=== PATIENT | male | born 1970 | race Two or more races ===

== ENCOUNTER 2025-05-25 18:36 | Emergency (ER) | payer MEDICAID, SELFPAY ==
[2025-05-25] VITALS (9 sets, daily range): BP systolic 124–185; BP diastolic 85–112; PULSE 64–105; RESP 12–23; TEMP 37.1–37.3; O2SAT 96–100; BMI 31.9
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
--- NOTE | 2025-05-25 18:50 | XR_ITS ---
EXAMINATION: AP chest single view TECHNIQUE: AP portable semiupright chest single view Date and time: May 25, 2025, 1904 hours INDICATIONS: Chest pain today. FINDINGS: Suspicious for early pneumonia left base Normal heart size Reduced inspiratory effort IMPRESSION: Suspicious for early pneumonia left base
--- NOTE | 2025-05-25 18:50 | EKG_ITS ---
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
--- NOTE | 2025-05-25 18:50 | XR_ITS ---
Examination: CT brain head without contrast. 2-D sagittal coronal reconstructions Date and time of exam: May 25, 2025, 1938 hours INDICATIONS: Patient fell today with injury to the head, head pain CTDI: vol (mGy): 52.6 DLP: (mGycm): 1062 Technique: Multiple CT axial sections of the brain have been obtained, 5 mm slice thickness. Contrast has not been administered. 2-D sagittal, coronal reconstructions have been obtained Low dose protocols were performed. One or more of the following dose reduction techniques were used; automated exposure control, adjustment of the mA and/or KV according to patient size, use of iterative reconstruction technique. Findings: Right subdural hematoma, likely subacute acute peripheral to the right frontal parietal convexity measuring up to 2.8 cm in dimension Transtentorial herniation with midline shift of 15 mm to the left Dilated temporal horns likely hydrocephalus Cranial vault intact Fourth ventricle midline Cerebellar tonsils are not herniated IMPRESSION: Right subdural hematoma, subacute versus acute, peripheral to the right frontoparietal convexity measuring up to 2.8 cm in dimension, shift of the frontal horns to the left 15 mm with marked impingement upon the right lateral ventricular system
--- NOTE | 2025-05-25 18:53 | PC.NURSE ---
NO STROKE ALERT PER DR. MONTAÑO
[2025-05-25] MEDS: NALOXONE INJ 1 MG/ML SYRINGE 2 ML 2 MG IV (19:09)
[2025-05-25 19:20] LABS: Basophils # (Auto) 0.0 Thou/mm3 (0.0-0.2); Basophils % (Auto) 0 % (0-2.5); Eosinophils # (Auto) 0.0 Thou/mm3 (0.0-0.5); Eosinophils % (Auto) 0 % (0-10); Hematocrit 44.4 % (41.0-53.0); Hemoglobin 15.0 g/dL (13.5-16.0); Immature Granulocytes Auto 0.03 Thou/mm3 (0.00-0.00); Lymphocytes # (Auto) 0.9 Thou/mm3 (1.0-4.8); Lymphocytes % (Auto) 8 % (10-50); Mean Corpuscular HGB Conc 33.8 g/dl (31.0-37.0); Mean Corpuscular Hemoglobin 31.1 pg (25.0-35.0); Mean Corpuscular Volume 92 fL (80-100); Monocytes # (Auto) 0.6 Thou/mm3 (0.0-0.8); Monocytes % (Auto) 6 % (0-12); Neutrophils # (Auto) 9.2 Thou/mm3 (1.8-7.7); Neutrophils % (Auto) 85 % (37-80); Nucleated Red Blood Cell # 0.00 Thou/mm3 (0.00-0.00); Nucleated Red Blood Cell % 0 /100 WBC (0); Platelet Count 212 Thou/mm3 (140-440); RDW Standard Deviation 43.8 fL (35.1-43.9); Red Blood Count 4.82 Miln/mm3 (4.50-5.90); White Blood Count 10.8 Thou/mm3 (3.8-10.6)
[2025-05-25 19:38] LABS: Alanine Aminotransferase 14 U/L (10-49); Albumin, Serum 4.5 gm/dL (3.5-5.0); Albumin/Globulin Ratio 1.5 (1.2-2.2); Alcohol, Blood Medical < 10.0 mg/dL (0-10.0); Alkaline Phosphatase 103 U/L (46-116); Anion Gap 10 (7-16); Aspartate Amino Transferase 17 U/L (0-34); BUN/Creatinine Ratio 13 Ratio (12-20); Bilirubin,Total 1.0 mg/dL (0.3-1.2); Blood Urea Nitrogen 10 mg/dL (9-23); Calcium 9.6 mg/dL (8.3-10.6); Calcium (Corrected) 9.6 mg/dL (8.5-10.1); Carbon Dioxide 26.8 mMol/L (20.0-31.0); Chloride 101 mMol/L (98-107); Creatinine (Component) 0.8 mg/dL (0.6-1.3); Estimated Creatinine Clearance 112.1 mL/min (>60); Globulin 3.1 gm/dL (2.3-3.5); Glucose 111 mg/dL (74-106); Osmolality,Calculated 275 (275-295); Potassium 4.0 mMol/L (3.4-5.1); Sodium 138 mMol/L (136-145); Total Protein 7.6 gm/dL (5.7-8.2); Troponin I < 0.020 ng/mL (0.0-0.045); eGFR > 60 See Note
[2025-05-25 20:09] LABS: Ammonia < 10 uMol/L (11-32)
[2025-05-25 20:35] LABS: INR 1.0 (0.9-1.3); Prothrombin Time 11.0 Seconds (9.0-12.2)
[2025-05-25] MEDS: ETOMIDATE INJ 2 MG/ML VIAL 10 ML 24 MG IVP (20:44)
[2025-05-25] MEDS: ROCURONIUM INJ 10 MG/ML VIAL 10 ML 80 MG IVP (20:44)
--- NOTE | 2025-05-25 20:52 | PC.NURSE ---
CALLED [facility] AND TALKED TO KARELY RAMIREZ AT [facility] , HE TOLD ME THAT HE NEED ACTUAL RESULT OF CT OF HEAD BEFORE HE CAN WORK ON TRANSFER.
--- NOTE | 2025-05-25 21:00 | XR_ITS ---
EXAMINATION: AP chest single view TECHNIQUE: AP portable semiupright chest single view Date and time: May 25, 2025, 2102 hours, comparison May 25, 2025 1904 hours INDICATIONS: Hypoxic respiratory failure post intubation post orogastric tube FINDINGS: Normal heart size Ectatic thoracic aorta. Mild vascular congestion. Early pneumonia left base. Endotracheal tube tip 4.5 cm above rekha. Orogastric tube in the stomach IMPRESSION: Early pneumonia left base
--- NOTE | 2025-05-25 21:05 | PC.NURSE ---
CALLED [facility] AND TALKED TO MAURY RAMIREZ AT [facility]ER [facility]ENTER , SHE TALKED TO DR. PASCAL, FAXED INFORMATION AND PUSHED IMAGE TO [facility].
[2025-05-25 21:19] LABS: Base Excess 1 (-3-3); HCO3 26 mEq/L (20-26); Inspired Oxygen, FIO2 40 %; O2 Saturation 98 % (91-98); PCO2 44 mmHg (32.0-48.0); PO2 145 mmHg (83-108); pH, Arterial 7.38 (7.35-7.45)
--- NOTE | 2025-05-25 21:19 | PRELIM_ITS ---
CT scan of the head without intravenous contrast (axial sections with sagittal and coronal reformats) May 25, 2025 1938 hours Clinical History: Altered mental status Comparison: None Findings: There is a 2.2 cm thick predominantly isodense subdural hemorrhage along the right frontoparietal convexity. There is also hyperdense acute component over the right frontal collection inferiorly. There is significant mass effect over the underlying brain parenchyma and third ventricle. There is midline shift of 1.4 cm to the left with subfalcine and right transtentorial herniation. The lateral ventricles including temporal horns are mildly dilated. Right lateral ventricle is effaced. The fourth ventricle and basal cisterns are preserved. The calvarium is intact. There is a small retention cyst/polyp in the right ethmoid sinus. The mastoid air cells and the other visualized paranasal sinuses are clear. There are dental cysts in the maxilla in midline, incompletely included. Impression: 1. A 2.2 cm acute on chronic subdural hemorrhage (predominantly isodense) along the right frontoparietal convexity with mass effect over the underlying brain parenchyma 2. Right transtentorial herniation and leftward subfalcine herniation with midline shift of 1.4 cm to the left. 3. Dilated temporal horns of the lateral ventricles, consistent with obstructive hydrocephalus, likely due to obstruction at the level of anterior third ventricle/foramen of [place]ro. 4. Other findings as described above. Suggest clinical correlation and follow up accordingly. Discussion Details: Results Discussed With : Dr. Rao at 08:56 PM 05/25/2025 Report Electronically Signed By: Fabian Berg 05/25/2025 9:19:05 PM [EST]
[2025-05-25 21:21] LABS: Allen Test Not Performed; Puncture Site Right Radial
[2025-05-25] MEDS: levETIRAcetam INJ 100 MG/ML VIAL 5ML 1000 MG IVP (21:23)
[2025-05-25] MEDS: PROPOFOL 1,000 MG IVPB 1,000 MG/100 ML VIAL 5.389 MG IV (21:28)
[2025-05-25] MEDS: fentaNYL 2,500 MCG/250 ML BAG 2,500 MCG/250 ML BAG 10 MCG IV (21:30)
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
--- NOTE | 2025-05-25 21:41 | PC.NURSE ---
MAURY RN AT [facility] CALLED AND INFORMED ME THAT PT IS ACCEPTED TO ED TO ED TRAUMA BY DR. MERLOS.
[2025-05-25 22:16] LABS: Collection Type, Urine Voided; Squamous Epithelial Cell,Urine 0 /hpf (0-5)
[2025-05-25] MEDS: SODIUM CHLORIDE 3%(Hypertonic) 500 ML in PRE-MIXED 1 BAG 30 ML IV (22:24)
[2025-05-25 22:33] LABS: Amphetamine/Methamp Scrn,U Positive (Negative); Barbiturate Screen,Urine Negative (Negative); Benzodiazepines Screen,Urine Negative (Negative); Benzoylecgonine Screen, Ur Negative (Negative); Bilirubin,Urine Negative (Negative); Blood,Urine 1+ (Negative); Clarity,Urine Clear (Clear/Hazy); Color,Urine Yellow (Lt Yel-Yel); Fentanyl Screen,Urine Negative (Negative); Glucose, Urine Negative (Negative); Ketones,Urine Trace (Negative); Leukocyte Esterase,Urine Negative (Negative); Nitrite,Urine Negative (Negative); Opiate Screen,Urine Negative (Negative); PH,Urine 6.5 (5.0-7.0); Protein,Urine 1+ (Neg - Trace); RBC,Urine 16 /hpf (0-3); Specific Gravity,Urine 1.031 (1.001-1.035); THC Screen,Urine Negative (Negative); Urobilinogen,Urine Negative mg/dL (0.0-1.0); WBC,Urine 3 /hpf (0-5)
--- NOTE | 2025-05-25 22:44 | PC.NURSE ---
REACH WAS CALLED BUT IT COMING FROM [place], [facility] AND DOCTOR WANTS PT TRANFER RIGHT AWAY. CALLED REACH AND CALLED [facility].
--- NOTE | 2025-05-26 02:32 | PC.NURSE ---
Report called and given to triage nurse at [facility]
== END 2025-05-25 22:41 | disposition short-term general hospital (02) ==
PROVIDERS: Emergency Provider Emergency Medicine
DX: I62.01 Nontraumatic acute subdural hemorrhage (principal); R40.2412 Glasgow coma scale score 13-15, at arrival to emergency department; R53.1 Weakness; R07.9 Chest pain, unspecified; I49.8 Other specified cardiac arrhythmias; Z75.1 Person awaiting admission to adequate facility elsewhere
CPT/HCPCS: 31500; 36415; 36600; 51702; 70450; 71045; 80053; 80307; 80320; 81001; 82140; 82803; 84484; 85025; 85610; 93005; 94002; 96374; 96375; 99291; 99292; A4314; J1953; J2312; J2704; J3010; J3490; J7131; G0480